=== PATIENT | female | born 1970 | race Caucasian/White ===

== ENCOUNTER 2018-04-26 07:55 | Emergency (ER) | payer BC ==
[~2018-04-26] VITALS: Ht 154.9 cm; Wt 59.0 kg
[~2018-04-26 07:55] MED LIST: GABAPENTIN300 MG PO; IBUPROFEN800 MG PO; OMEPRAZOLE20 MG PO; PROBIOTIC1 EAC1 PO; ULTRAM50 MG PO
[2018-04-26] MEDS ORDERED: KETOROLAC TROME10 MG PO (09:41)
[2018-04-26] MEDS ORDERED: METHYLPREDNISOLO4 M1 PO (09:41)
== END 2018-04-26 10:13 | disposition home or self-care (01) ==
LOC: ED 07:55
DX: M79.621 Pain in right upper arm (principal); Z79.899 Other long term (current) drug therapy
CPT/HCPCS: 73030; 73060; 99283

== ENCOUNTER 2018-12-08 06:19 | Day surgery (SDC) | payer BC ==
[~2018-12-08] VITALS: Ht 154.9 cm; Wt 59.0 kg
[~2018-12-08 06:19] MED LIST changes: +KETOROLAC TROME10 MG PO; +METHYLPREDNISOLO4 M1 PO
[2018-12-08] MEDS ORDERED: ESTRACE0.5 MG PO (06:37)
--- NOTE | 2018-12-08 08:05 | NUR ---
12/08/18 0805 Shona Love 0759- PT TO PACU IN LL POSITION ON 3 L O2 VIA NC. EYES CLOSED, OPENS WITH VERBAL AND TACTILE STIMULATION BUT QUICKLY FALLS BACK TO SLEEP. BREATHING EASY AND UNLABORED. SP02 100%. 0805- PT CONTINUES TO BE VERY SLEEPY. OPENS EYES TO TACTILE STIMULATION. BREATHING EASY AND UNLABORED. SP02>95% ON RA.
--- NOTE | 2018-12-08 08:59 | OR ---
[facility] [address], [place] [address] Signed DATE OF OPERATION: 12/08/2018 SURGEON: Nitish Stallworth MD PREOPERATIVE DIAGNOSES: 1. Screening. 2. Daughter and nephew with Crohn disease. 3. Fecal soilage. 4. Pruritus ani. 5. Constipation. POSTOPERATIVE DIAGNOSES: 1. Mild pruritus ani. 2. 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 3. Minimal internal hemorrhoids. PROCEDURE: Colonoscopy with random colonic cold biopsies. ESTIMATED BLOOD LOSS: None. INDICATIONS: Selina is a 48-year-old female, asked to see me mainly for her initial screening colonoscopy. She talks about fecal soilage associated with pruritus ani. There was some discussion of constipation as well. She uses some types of wipes around the anus and says it is pretty painful. She also mentioned her daughter and her nephew had Crohn disease. I had met with Selina in the office and I gave her a booklet on colonoscopy. We reviewed the nature of the test along with risks including, but not limited to gas bloating, crampy abdominal pain, bleeding, perforation requiring surgery, and missed diagnosis. We also discussed the need for IV conscious sedation. She had expressed understanding and wished to proceed. PROCEDURE NOTE: Selina was taken into our endoscopy suite and placed in the left lateral decubitus position. She was maintained on IV sedation with 8 mg of Versed and 150 mcg of fentanyl. A digital rectal exam had been performed and she does have some mild irritation around the anus consistent with mild pruritus ani. Her sphincter tone was good. No masses. The adult colonoscope was introduced and advanced all around into the cecum under direct visualization of camera. Technically she is easy to pass the scope. Electronically Signed By: NITISH STALLWORTH MD 12/08/18 0859 PATIENT NAME: SELINA CHATMAN OPERATIVE REPORT DATE OF : 66 REPORT #: [id number] PHYSICIAN: NITISH STALLWORTH MD PCP: MARILEE CHAVIS REPORT IS CONFIDENTIAL AND NOT TO BE RELEASED WITHOUT AUTHORIZATION [facility] [address], [place] [address] Signed Nevertheless, she needed some additional sedation as we came through the left colon and a little around hepatic flexure. No abdominal compression was needed. Her prep was quite excellent. We could easily see the appendiceal orifice and the ileocecal valve. We had taken pictures throughout for photodocumentation. The scope was slowly withdrawn. She may have very mild melanosis coli. Consequently, we did take several random biopsies throughout the colon for pathologic review. No diverticulosis, no polyps. No obvious inflammatory changes. The rectum was unremarkable. Upon retroflexion of the scope, she had very minimal internal hemorrhoid tissue. After this, the gas was suctioned out and the colonoscope removed. Selina tolerated the procedure quite well. RECOMMENDATIONS: I will see Selina back in my office in 7 to 14 days to review her results. She is yet to purchase the Balneol lotion. Nitish Stallworth MD ALB/MODL /[id number] cc: MD Billy Easton, PADMAJA England MD Copies: NITISH STALLWORTH MD,BILLY CHAVIS,LYNSEY OLIVA MD ~ Electronically Signed By: NITISH STALLWORTH MD 12/08/18 0859 PATIENT NAME: SELINA CHATMAN OPERATIVE REPORT DATE OF : 66 REPORT #: [id number] PHYSICIAN: NITISH STALLWORTH MD PCP: MARILEE CHAVIS REPORT IS CONFIDENTIAL AND NOT TO BE RELEASED WITHOUT AUTHORIZATION
== END 2018-12-08 08:48 | disposition home or self-care (01) ==
LOC: OPS 06:19 → DS 06:19 → OPS 06:45
PROVIDERS: Colon & Rectal Surgery
PROC: 0DBE8ZX Excision of Large Intestine, Via Natural or Artificial Opening Endoscopic, Diagnostic (ICD-10-PCS; principal; 2018-12-08 06:45)
DX: Z12.11 Encounter for screening for malignant neoplasm of colon (principal); K64.8 Other hemorrhoids; K62.89 Other specified diseases of anus and rectum; K59.00 Constipation, unspecified; Z88.5 Allergy status to narcotic agent; Z79.899 Other long term (current) drug therapy
CPT/HCPCS: 99153; G0500; J2250; J3010; J7120

== ENCOUNTER 2020-06-27 14:52 | Emergency (ER) | payer BC ==
[~2020-06-27] VITALS: Ht 154.9 cm; Wt 59.0 kg
[~2020-06-27 14:52] MED LIST changes: +ESTRACE0.5 MG PO
[2020-06-27] MEDS ORDERED: CYCLOBENZAPRINE5 MG PO (15:02)
[2020-06-27] MEDS ORDERED: METHYLPREDNISOLO4 M1 PO (18:55)
== END 2020-06-27 19:08 | disposition home or self-care (01) ==
LOC: ED 14:52
DX: G89.29 Other chronic pain (principal); M54.9 Dorsalgia, unspecified; Z79.899 Other long term (current) drug therapy
CPT/HCPCS: 81001; 99283